=== PATIENT | female | born 1975 | race Caucasian/White ===

== ENCOUNTER → 2016-08-21 | Outpatient (CLI) | payer BC ==
--- NOTE | 2016-08-21 12:55 | CONS ---
DATE OF CONSULTATION: 08/21/2016 CONSULTATION/NEW PATIENT EVALUATION: A 40-year-old lady who has been evaluated in the [facility] for snoring and tiredness and sleepiness during the day. HISTORY OF PRESENT ILLNESS/SLEEP-WAKE EVALUATION: Patient has history of sleepiness and tiredness for a long time, had sleep study done about 8 years ago. At that time sleep study was negative for obstructive sleep apnea-hypopnea syndrome, but she continued to snore and feel sleepy during the day. SLEEP SCHEDULE: Her sleep schedule varies but usually on the weekdays is from around 9 p.m. until 6:15 a.m. On weekends from around 11 p.m. until 7:38 a.m. FALLING ASLEEP: She does have problems usually falling asleep. Has TV set in bedroom. DURING SLEEP: Usually sleeps on the side position, wakes up from sleep up to 4 times with up to 2 episodes of nocturia. Moves a lot during the night. No history of hypnagogic hallucinations, sleep paralysis or cataplexy. Patient feels sometimes dryness in her mouth, believes that she opens her mouth during sleep, sometimes drooling during the night. DURING THE DAY/WAKE STATE: She feels sleepiness during the day, although usually does not take naps. [place] Sleepiness Scale is 10. PAST MEDICAL HISTORY: Positive for anxiety episodes, headaches, sometimes she wakes up with headache in the morning, diarrhea. PAST SURGICAL HISTORY: Cholecystectomy, laparoscopy for the abdominal pain in the past, negative for any significant abnormalities. Bilateral surgery for lazy eyes in childhood. MEDICATIONS: control pills, Questran, Elavil, Prozac. SOCIAL HISTORY: Negative for smoking or using alcohol. REVIEW OF SYSTEMS: Positive for excessive daytime sleepiness, awakenings from sleep, episodes of diarrhea, depression, anxiety, problem with memory, concentration. FAMILY HISTORY: Stroke, arthritis, emphysema, snoring, headaches, diabetes. During physical exam, a 40-year-old lady without distress. BP 157/78, HR 74, RR 16. Height 5, 5-1/2. Weight 137, BMI 22.4. Neck 13-1/4 inches in circumference. Temperature 99.2. OROPHARYNX: ( ) 2 mm, extremely low position of soft palate. Slight restriction of nasal breathing bilaterally, more on the left side. NECK: Supple. No JVD. Thyroid is not palpable. LUNGS: Clear to percussion and to auscultation. Good air exchange. No wheezing or rhonchi. HEART: S1, S2 regular. No murmurs, gallops or rubs. ABDOMEN: Soft and nontender. Bowel sounds are present. No organomegaly appreciated. EXTREMITIES: No clubbing or cyanosis. BOX FABRICATOR: Awake, alert, and oriented x3. Cranial nerves 2 to 7 intact. There is no fasciculation or atrophy noted. No focal deficits observed. IMPRESSION: 1. Snoring, low position of soft palate, awakenings from sleep up to 4 times, sleepiness during the day, possible obstructive sleep apnea-hypopnea syndrome but sleep study 8 years ago was negative. 2. Sleepiness during the day. [place] Sleepiness Scale increased to 10, differential diagnosis includes hypersomnia. 3. Anxiety. 4. Episodes of headaches, sometimes after awakenings in the morning. 5. Status post cholecystectomy. 6. Status post lazy eye surgery. 7. Multiple episodes of diarrhea, started after cholecystectomy. PLAN: 1. Polysomnography for evaluation of patient's breathing during sleep. 2. CPAP/BiPAP titration if sleep study confirms obstructive sleep apnea-hypopnea syndrome. 3. Preferable position during sleep on the side. 4. No driving if patient feels any sleepiness. Patient is aware of civil and criminal liability for unsafe driving. 5. I will see patient for follow-up visit to explain results of the testing and following plan. 6. Multiple sleep latency test, if sleep study will be negative for obstructive sleep apnea-hypopnea syndrome for objective evaluation of patient's symptoms of excessive daytime sleepiness. Thank you very much for referring this patient for consultation. Sincerely, Reji Camara MD, PhD, FAASM. Diplomat of [place] [employer], Sleep Medicine Board by [place] [employer] Facsimile Operator of [facility] [place]
== END | disposition home or self-care (01) ==
CPT/HCPCS: 99211

== ENCOUNTER → 2016-10-30 | Outpatient (CLI) | payer BC ==
--- NOTE | 2016-10-30 23:05 | PN ---
DATE OF SERVICE: 10/30/2016 This patient is a 40-year-old lady who has been followed in the sleep center. She is here to discuss results of her sleep study. Sleep study was done to rule out obstructive sleep apnea-hypopnea syndrome and to check for symptoms of excessive sleepiness. No significant respiratory abnormalities were documented during the sleep study. Apnea-hypopnea index zero. Lowest oxygen level was 93.8%. We discussed results of the sleep study with the patient in detail. Following multiple sleep latency test showed mean sleep latency 12.8 minutes, which is in acceptable range. MEDICATION: Elavil for headaches. PHYSICAL EXAMINATION: Patient is in no distress. VITAL SIGNS: BP 129/82, HR 76, RR 16. Oxygen saturation at room air 98%. Weight 139 pounds. BMI 23.1. Temperature is 98.9. HEENT: PERRLA, EOMI. Evaluation of oropharynx showed tongue protrudes midline; moderately low position of soft palate. NECK: Supple. No JVD. Thyroid is not palpable. LUNGS: Clear to percussion and to auscultation. Good air exchange. No wheezing or rhonchi. HEART: S1, S2 regular. No murmurs, gallops or rubs. ABDOMEN: Soft and nontender. Bowel sounds are present. No organomegaly appreciated. EXTREMITIES: No clubbing or cyanosis. CONVENTION PLANNER: Awake, alert, and oriented x3. Cranial nerves 2 to 7 intact. There is no fasciculation or atrophy noted. No focal deficits observed. IMPRESSION: 1. No significant respiratory abnormalities during sleep. 2. Snoring was documented during the sleep study. 3. Episodes of headaches. 4. No significant sleepiness documented by the results of multiple sleep latency test. 5. Episodes of anxiety. 6. Status post cholecystectomy. 7. Status post lazy eye surgery. 8. Episodes of diarrhea. PLAN: 1. Sleep hygiene with regular time in bed for at least 8 hours; preferable position slightly up on the side. 2. Patient could be evaluated for snoring by ear, nose and throat physician. 3. Watching weight. 4. No driving if feeling any sleepiness. Thank you very much for allowing me to participate in the management of your patient. Sincerely, Reji Camara MD, PhD, FAASM. Diplomat of [employer], Sleep Medicine Board by [employer], [place] [employer]
== END | disposition home or self-care (01) ==
LOC: SLEEP 16:35
PROVIDERS: ATTEND Internal Medicine
DX: R06.83 Snoring (principal); R51 Headache; F41.9 Anxiety disorder, unspecified; R19.7 Diarrhea, unspecified; Z98.890 Other specified postprocedural states

== ENCOUNTER → 2018-08-12 | Outpatient (CLI) | payer BC ==
--- NOTE | 2018-08-22 12:11 | MM ---
Reason for exam: screening (asymptomatic). Last mammogram was performed 2 years and 6 months ago. History: Taking hormonal contraceptives for 23 years 9 months beginning at age 18. MG 3D Screening Mammo W/Cad Bilateral CC and MLO view(s) were taken. Prior study comparison: February 06, 2016, bilateral MG screening mammo w CAD. April 23, 2011, bilateral digital screening mammo w/CAD. The breast tissue is heterogeneously dense. This may lower the sensitivity of mammography. No significant changes when compared with prior studies. ASSESSMENT: Benign, BI-RAD 2 RECOMMENDATION: Routine screening mammogram of both breasts in 1 year.
== END | disposition home or self-care (01) ==
LOC: RADMAMWWP 11:05
PROVIDERS: ATTEND Obstetrics & Gynecology
DX: Z12.31 Encounter for screening mammogram for malignant neoplasm of breast (principal)
CPT/HCPCS: 77063; 77067

== ENCOUNTER → 2020-01-12 | Outpatient (CLI) | payer BC ==
--- NOTE | 2020-01-21 20:13 | EM ---
EVENT MONITOR Patient was monitored between the and the 17 of January. The rhythm strip reviewed revealed sinus mechanism with single PVCs and one ventricle of couplets. There were no episodes of ventricular tachycardia nor atrial fibrillation. ANA / SARA: [id number] /
== END | disposition home or self-care (01) ==
LOC: RADECHMAIN 11:55
PROVIDERS: ATTEND Internal Medicine
DX: R00.2 Palpitations (principal)
CPT/HCPCS: 93270

== ENCOUNTER → 2020-11-13 | Outpatient (CLI) | payer BC ==
--- NOTE | 2020-11-15 10:51 | MM ---
Reason for exam: screening (asymptomatic). Last mammogram was performed 2 years and 3 months ago. History: Taking hormonal contraceptives for 23 years 9 months beginning at age 18. Physical Findings: A clinical breast exam by your physician is recommended on an annual basis and results should be correlated with mammographic findings. MG 3D Screening Mammo W/Cad Bilateral CC and MLO view(s) were taken. Prior study comparison: August 12, 2018, bilateral MG 3d screening mammo w/cad. February 06, 2016, bilateral MG screening mammo w CAD. The breast tissue is extremely dense which could obscure a lesion on mammography. No significant changes when compared with prior studies. ASSESSMENT: Benign, BI-RAD 2 RECOMMENDATION: Routine screening mammogram of both breasts in 1 year.
== END | disposition home or self-care (01) ==
LOC: RADMAMWWP 13:46
PROVIDERS: ATTEND Obstetrics & Gynecology
DX: Z12.31 Encounter for screening mammogram for malignant neoplasm of breast (principal)
CPT/HCPCS: 77063; 77067

== ENCOUNTER → 2021-06-26 | Outpatient (CLI) | payer OTHER ==
--- NOTE | 2021-06-26 10:52 | XR ---
EXAMINATION TYPE: XR lumbar spine 2 or 3V DATE OF EXAM: 06/26/2021 CLINICAL HISTORY: Pain since recent fall injury. TECHNIQUE: Frontal and lateral images of the lumbar spine are obtained. COMPARISON: Prior lumbar spine x-ray January 28, 2011. MRI lumbar spine November 06, 2011 FINDINGS: There are 5 lumbar type vertebral bodies redemonstrated. Stable slight grade 1 retrolisthe sis L5 on S1. Moderate to severe disc space narrowing with vacuum disc phenomenon L5-S1 level is prog ressed from prior studies. Vertebral body heights and disc space heights are stable and satisfactory above the L5 level. No acute fracture is seen. Overlying Cholecystectomy clips are redemonstrated. IMPRESSION: No acute fracture or dislocation is seen in the lumbar spine.
--- NOTE | 2021-06-26 11:07 | CT ---
EXAMINATION TYPE: CT brain cspine wo con DATE OF EXAM: 06/26/2021 COMPARISON: CT brain August 01, 2010. HISTORY: Headache and neck pain after recent trauma injury CT DLP: 1313.2 mGycm. Automated Exposure Control for Dose Reduction was Utilized. TECHNIQUE: CT scan of the head and cervical spine are performed without contrast. FINDINGS: There is no acute intracranial hemorrhage, mass effect, or midline shift identified. The ventricles and sulci are within normal limits in size. Lion-white matter differentiation is maintain ed. The calvarium is intact. The globes are intact and the visualized sinuses are clear. Cervical spine is visualized in its entirety from C1 through upper thoracic levels and demonstrates g rade 1 retrolisthesis C6 on C7 without evidence of acute fracture or dislocation. Prevertebral soft tissue appears within normal limits. The C1-C2 articulation is within normal limits on the coronal i mages. Vertebral body heights are maintained. Mild to moderate disc space narrowing and anterior spur ring C6-C7 level. Posterior disc herniation C5-C6 level effaces anterior thecal sac sagittal image 42 and axial image 62. Axial images show normal appearing thyroid gland. Lung apices show no pneumothor ax. IMPRESSION: 1. There is no acute fracture or dislocation evident in the cervical spine. 2. No acute intracranial hemorrhage, mass effect, or midline shift is seen. No significant change fro m prior.
== END | disposition home or self-care (01) ==
LOC: RADCTMAIN 10:18
PROVIDERS: ATTEND Emergency Medicine
DX: S13.4XXA Sprain of ligaments of cervical spine, initial encounter (principal); S00.83XA Contusion of other part of head, initial encounter; S33.5XXA Sprain of ligaments of lumbar spine, initial encounter; X58.XXXA Exposure to other specified factors, initial encounter
CPT/HCPCS: 70450; 72100; 72125

== ENCOUNTER → 2022-05-30 | Outpatient (CLI) | payer BC ==
--- NOTE | 2022-06-02 08:34 | MM ---
Reason for Exam: Screening (asymptomatic). Last mammogram was performed 1 year(s) and 6 month(s) ago. Patient History: Menarche at age 12. First Full-Term at age 26. Currently using Hormonal Contraceptives, beginning at age 18 for 23 years, 9 months. Risk Values: Almita 5 year model risk: 1.0%. NCI Lifetime model risk: 10.3%. Prior Study Comparison: 02/06/2016 Bilateral Screening Mammogram, [facility]. 08/12/2018 Bilateral Screening Mammogram, [facility]. 11/13/2020 Bilateral Screening Mammogram, [facility]. Tissue Density: The breast tissue is heterogeneously dense. This may lower the sensitivity of mammography. Findings: Analyzed By CAD. There is no suspicious group of microcalcifications or new suspicious mass in either breast. Overall Assessment: Negative, BI-RAD 1 Management: Screening Mammogram of both breasts in 1 year. A clinical breast exam by your physician is recommended on an annual basis and results should be correlated with mammographic findings. Electronically signed and approved by: Aden Chun M.D. Radiologis
== END | disposition home or self-care (01) ==
LOC: RADMAMWWP 16:33
PROVIDERS: ATTEND Obstetrics & Gynecology
DX: Z12.31 Encounter for screening mammogram for malignant neoplasm of breast (principal)
CPT/HCPCS: 77063; 77067

== ENCOUNTER → 2023-02-19 | Outpatient (CLI) | payer BC ==
--- NOTE | 2023-02-19 10:23 | XR ---
EXAMINATION TYPE: XR cervical spine w flex/ext DATE OF EXAM: 02/19/2023 COMPARISON: NONE HISTORY: Pain TECHNIQUE: 9 views are submitted including flexion extension lateral views. FINDINGS: The odontoid is intact. There are no compression deformities. The prevertebral soft tissue structur es are within normal limits. There is a moderate degenerative disc disease C6-C7 with large anterior hypertrophic spurring. There is posterior spondylosis one to 2 mm retrolisthesis of C6 relative to C 7. There is a 1 to 2 mm anterolisthesis of C4 relative to C5 which is slightly increased on flexion v iew and reduces on extension view. Findings suggest ligamentous laxity foraminal encroachment level C 4-5, C5-6 and C6-C7. IMPRESSION: 1. Evidence of moderate degenerative disc disease with posterior spondylosis C6-C7. 2. Loss of the cervical lordosis with anterolisthesis of C3-4 on C5 and retrolisthesis of C6 and C7 a s discussed above. Recommend follow-up MRI.
--- NOTE | 2023-02-19 10:30 | XR ---
EXAM TYPE: LUMBAR SPINE X RAY SERIES COMPARISON: 06/26/2021 HISTORY: Back pain TECHNIQUE: 4 views are submitted. FINDINGS: Alignment is anatomic. The pedicles are intact. The transverse processes are intact. There is no s pondylolysis or spondylolisthesis. Severe degenerative disc disease L5-S1. There is advanced facet arthropathy L4-5 and L5-S1 with bilateral foraminal enlargement. There is multilevel ljjk-ch-kzfinbeh degenerative disc disease with diffuse osteopenia. Surgical clips in the gallbladder fossa IMPRESSION: 1. Diffuse osteopenia with multilevel uqme-ah-[id number] degenerative disc disease. Severe changes L5-S 1 with facet arthropathy suspected foraminal encroachment..
== END | disposition home or self-care (01) ==
LOC: RADXRMAIN 09:20
PROVIDERS: ATTEND Internal Medicine
DX: M47.816 Spondylosis without myelopathy or radiculopathy, lumbar region (principal); M47.812 Spondylosis without myelopathy or radiculopathy, cervical region; M50.323 Other cervical disc degeneration at C6-C7 level; M43.12 Spondylolisthesis, cervical region; M51.36 Other intervertebral disc degeneration, lumbar region; M47.817 Spondylosis without myelopathy or radiculopathy, lumbosacral region
CPT/HCPCS: 72052; 72100

== ENCOUNTER → 2023-04-06 | Outpatient (CLI) | payer BC ==
--- NOTE | 2023-04-06 20:12 | MR ---
EXAMINATION TYPE: MR cspine/lspine wo con DATE OF EXAM: 04/06/2023 7:16 PM CLINICAL INDICATION:Female, 47 years old with history of M47.812 SPONDYLOSIS W/O MYELOPATHY OR RADICU LOPATH; Back and neck pain COMPARISON: 11/06/2011 TECHNIQUE: Multi planar, multi sequence imaging was performed utilizing: T1-weighted, T2-weighted, a nd turbo inversion recovery imaging of the cervical and lumbar spine. MR contrast: IV Contrast: None. FINDINGS: CERVICAL: Alignment: The cervical vertebral bodies have preserved heights. Mild straightening of the cervical s pine. Bones: Scattered Modic endplate changes with osteophytes and disc space narrowing. Multilevel degener ative disc disease is noted and most pronounced at the C5-C7 vertebral levels. Cord: The spinal cord is unremarkable with regards to their signal intensity and morphology. Discs: Intervertebral disc signal is maintained. C2-C3: No significant disc pathology. The spinal canal is patent. No neural foraminal stenosis. C3-C4: No significant disc pathology. The spinal canal is patent. Bilateral facet and uncovertebral joint arthropathy are present with mild bilateral neural foraminal stenosis. C4-C5: No significant disc pathology. The spinal canal is patent. Bilateral facet and uncovertebral joint arthropathy are present with mild bilateral neural foraminal stenosis. C5-C6: A disc osteophyte complex is present with mild spinal canal stenosis and mildly impresses on t he anterior spinal cord. Cord signal is maintained.. No neural foraminal stenosis. C6-C7: No significant disc pathology. The spinal canal is patent. Bilateral facet and uncovertebral joint arthropathy are present with moderate to severe right and mild left neural foraminal stenosis. C7-T1: No significant disc pathology. The spinal canal is patent. No neural foraminal stenosis. Other: None. LUMBAR: Alignment: The lumbar vertebral bodies have preserved heights and alignment. Cord: The conus medullaris and the distal spinal cord appear unremarkable with regards to their signa l intensity and morphology. Bones/Discs: Mild disc degeneration changes with Schmorl's nodes, disc space narrowing and Modic endp late changes findings worse at L5-S1. T12-L1: No evidence of significant spinal canal stenosis or neural foraminal stenosis. L1-L2: No evidence of significant spinal canal stenosis or neural foraminal stenosis. L2-L3: No evidence of significant spinal canal stenosis or neural foraminal stenosis. L3-L4: No evidence of significant spinal canal stenosis or neural foraminal stenosis. L4-L5: Central and right central disc extrusion without significant spinal canal stenosis. Facet join t arthropathy with mild bilateral neural foraminal cysts. L5-S1: The disc is rounded posterior morphology without significant spinal canal stenosis. Facet join t arthropathy with mild neural foraminal stenosis. Other findings: None. IMPRESSION: 1. L4-L5 central and right central disc extrusion without significant spinal canal or neural foramina l stenosis. Findings similar to 2012. 2. Mild disc degeneration with associated osteoarthritic changes of the cervical spine worse at C6-C 7 with moderate to severe right neural foraminal stenosis.
== END | disposition home or self-care (01) ==
LOC: RADMRIMAIN 17:52
PROVIDERS: ATTEND Internal Medicine
DX: M47.812 Spondylosis without myelopathy or radiculopathy, cervical region (principal); M47.816 Spondylosis without myelopathy or radiculopathy, lumbar region; M48.02 Spinal stenosis, cervical region; M50.323 Other cervical disc degeneration at C6-C7 level; M51.26 Other intervertebral disc displacement, lumbar region
CPT/HCPCS: 72141; 72148

== ENCOUNTER → 2023-08-31 | Outpatient (CLI) | payer BC ==
--- NOTE | 2023-09-02 20:30 | MM ---
Reason for Exam: Screening (asymptomatic). Last mammogram was performed 1 year(s) and 3 month(s) ago. Patient History: Menarche at age 12. First Full-Term at age 26. Premenopausal. Currently using Hormonal Contraceptives, beginning at age 18 for 23 years, 9 months. Risk Values: Almita 5 year model risk: 1.0%. NCI Lifetime model risk: 10.2%. Prior Study Comparison: 08/12/2018 Bilateral Screening Mammogram, [facility]. 11/13/2020 Bilateral Screening Mammogram, [facility]. 05/30/2022 Bilateral MG 3D screening mammo w/cad, [facility]. Tissue Density: The breast tissue is heterogeneously dense. This may lower the sensitivity of mammography. Findings: Analyzed By CAD. 2.2 cm nodule left upper-outer quadrant, better demonstrated on 3-D images. Further evaluation is recommended. Otherwise, no significant change. Overall Assessment: Incomplete: need additional imaging evaluation, BI-RAD 0 Management: Diagnostic Breast Ultrasound of the left breast. Upper outer quadrant. [facility] will attempt to contact patient to return for supplemental views and ultrasound if indicated. Electronically signed and approved by: Vladimir Armstrong M.D. Radiologist
== END | disposition home or self-care (01) ==
LOC: RADMAMWWP 14:36
PROVIDERS: ATTEND Obstetrics & Gynecology
DX: Z12.31 Encounter for screening mammogram for malignant neoplasm of breast (principal)
CPT/HCPCS: 77063; 77067

== ENCOUNTER → 2023-09-04 | Outpatient (CLI) | payer BC ==
--- NOTE | 2023-09-04 13:38 | USB ---
Reason for Exam: Additional evaluation requested from abnormal screening. Patient History: Menarche at age 12. First Full-Term at age 26. Premenopausal. Currently using Hormonal Contraceptives, beginning at age 18 for 23 years, 9 months. Risk Values: Almita 5 year model risk: 1.0%. NCI Lifetime model risk: 10.2%. Technique: Method: Targeted. Prior Study Comparison: 11/13/2020 Bilateral Screening Mammogram, [facility]. 05/30/2022 Bilateral MG 3D screening mammo w/cad, [facility]. 08/31/2023 Bilateral MG 3D screening mammo w/cad, [facility]. Findings: The lateral section of the breast of the left breast, the axilla of the left breast and the retroareolar of the left breast were scanned. Targeted ultrasound upper outer quadrant left breast including scanning of the subareolar region and axilla. At the 2:00 position, 4 cm from the nipple, there is a benign 2.4 x 2.2 x 0.8 cm cyst, likely mammographic correlate. Six-month follow-up mammogram could be performed. Scattered dense tissue. No other solid or cystic lesion or axillary lymphadenopathy. Overall Assessment: Probably benign, BI-RAD 3 Management: Diagnostic Mammogram of the left breast in 6 months. A clinical breast exam by your physician is recommended on an annual basis and results should be correlated with mammographic findings. This exam should not preclude additional follow-up of suspicious palpable abnormalities. Results were given to the patient verbally at the time of exam. Electronically signed and approved by: Vladimir Armstrong M.D. Radiologist
== END | disposition home or self-care (01) ==
LOC: RADUSWWP 12:53
PROVIDERS: ATTEND Obstetrics & Gynecology
DX: R92.8 Other abnormal and inconclusive findings on diagnostic imaging of breast (principal)

== ENCOUNTER → 2023-10-09 | Outpatient (CLI) | payer OTHER ==
--- NOTE | 2023-10-09 10:37 | XR ---
EXAMINATION TYPE: XR lumbosacral spine min 4V DATE OF EXAM: 10/09/2023 9:35 AM CLINICAL INDICATION:Female, 47 years old with history of S39.012A STRAIN IN BACK; [facility] COMPARISON: 02/19/2023 TECHNIQUE: XR lumbosacral spine min 4V - Frontal, lateral , bilateral oblique and coned in L5-S1 late ral views of the spine. FINDINGS: No evidence of any acute osseous pathology. No evidence of loss of vertebral body height i s seen. There is normal alignment of the lumbar vertebral bodies. Mild scattered disc space narrowing . Multilevel marginal osteophyte formation throughout the visualized spine. There is facet joint arth ropathy throughout the spine worse at L5-S1 with moderate to severe. Scattered neural foraminal steno sis worse at L5-S1 with mild to moderate. Right upper quadrant cholecystectomy clips. IMPRESSION: 1. No acute fracture. 2. Mild to moderate multilevel disc degeneration.
== END | disposition home or self-care (01) ==
LOC: RADXRMAIN 09:10
PROVIDERS: ATTEND Emergency Medicine
DX: S39.012A Strain of muscle, fascia and tendon of lower back, initial encounter (principal); M51.36 Other intervertebral disc degeneration, lumbar region
CPT/HCPCS: 72110

== ENCOUNTER → 2024-02-23 | Outpatient (CLI) | payer BC ==
--- NOTE | 2024-02-23 13:48 | MM ---
Reason for Exam: Follow-up at short interval from prior study. Last screening mammogram was performed 6 month(s) ago. Patient History: Menarche at age 12. First Full-Term at age 26. Premenopausal. Currently using Hormonal Contraceptives, beginning at age 18 for 23 years, 9 months. Risk Values: Almita 5 year model risk: 1.0%. NCI Lifetime model risk: 10.0%. Prior Study Comparison: 11/13/2020 Bilateral Screening Mammogram, [facility]. 05/30/2022 Bilateral MG 3D screening mammo w/cad, [facility]. 08/31/2023 Bilateral MG 3D screening mammo w/cad, [facility]. Tissue Density: Left: The breasts are heterogeneously dense, which may obscure small masses. Findings: Analyzed By CAD. The pattern is symmetrical. Previous rounded density with partially obscured margins upper outer middle left breast remains present slightly smaller than comparison. This was previously identified cyst. No suspicious groups of microcalcifications, spiculated or lobular masses, architectural distortion or other secondary signs of malignancy are mammographically apparent. Overall Assessment: Benign, BI-RAD 2 Management: Screening Mammogram of both breasts in 6 months. A negative mammogram report should not preclude additional follow up of suspicious palpable abnormalities. Patient should continue monthly self breast exam. A clinical breast exam by your physician is recommended on an annual basis and results should be correlated with mammographic findings. Note on Almita scores and lifetime risk: 1. A Almita score greater than 3% is considered moderate risk. If this is the case, consider specialist referral to assess eligibility for a risk reducing agent. 2. If overall lifetime risk for the development of breast cancer is 20% or higher, the patient may qualify for future screening with alternating mammogram and breast MRI. Electronically signed and approved by: Patric Mendez D.O. Radiologis
== END | disposition home or self-care (01) ==
LOC: RADMAMWWP 13:00
PROVIDERS: ATTEND Internal Medicine
DX: R92.8 Other abnormal and inconclusive findings on diagnostic imaging of breast (principal); R92.332 Mammographic heterogeneous density, left breast
CPT/HCPCS: 77061; 77065

== ENCOUNTER → 2024-03-29 | Outpatient (CLI) | payer BC ==
--- NOTE | 2024-04-01 15:56 | WWHP ---
This is from her 03/29/24 visit. [facility] - HISTORY AND PHYSICAL CHIEF COMPLAINT: The patient is here for her routine gynecologic exam. HPI: This is a 48-year-old G1, P1, with an LMP of 03/08/2024. The patient is here to establish with this office. It has been about 1 year since her last pelvic exam, but she is uncertain as to when her last Pap smear was done. She previously saw Dr. Syed for her gynecologic care. She has a history of polycystic ovarian syndrome throughout most of her life. She states her menstrual periods were irregular since she started having menstrual periods around age 13. She was started on oral contraception at age 18 because of infrequent menstrual periods. She stopped control pills to get and did require infertility treatment to get . After her , she resumed oral contraception and does have regular menstrual periods with oral contraception. She is not interested in future childbearing. She is without gynecologic complaints at this time. PAST MEDICAL HISTORY: ADHD, mood disorder, digestive problems, depression and anxiety improved with ADHD medications, and PCOS. MEDICATIONS: 1. Asotin-Linyah one p.o. daily. 2. Ritalin 10 mg b.i.d. 3. Lamotrigine 100 mg daily. 4. Questran 1 pack daily. ALLERGIES: To Reglan, which caused anxiety. PAST SURGICAL HISTORY: Cholecystectomy, laparoscopy, and 2 eye surgeries. PAST OB HISTORY: One vaginal delivery. 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 SOCIAL HISTORY: She denies tobacco, alcohol, and drug use. She has been since 1996. 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 FAMILY HISTORY: Mother has diabetes and chronic obstructive pulmonary disease. Father is and had lung cancer. There is no family history of cancer of the breast, uterus, ovaries, or colon. REVIEW OF SYSTEMS: She has had weight fluctuation related to stress in her life and had lost approximately 19 pounds because of a stressful situation, but she has gained that weight back. She denies respiratory, cardiac or GI problems. PHYSICAL EXAMINATION: VITAL SIGNS: Blood pressure 134/91, height 5 feet 6 inches, weight 141 pounds, BMI 23. Temperature 98.2, pulse 76, pulse oximeter 100%. GENERAL: This is a well-developed, well-nourished, white female, who is alert and oriented x3, in no acute distress. HEENT: Within normal limits. NECK: Supple without mass or thyromegaly. CHEST AND LUNGS: Clear to auscultation. HEART: Regular rate and rhythm. BREASTS: Without mass or discharge. AXILLARY: Negative for adenopathy. BACK: Negative for CVA tenderness. ABDOMEN: Soft, nontender, without palpable masses. PELVIC: Normal external genitalia without significant atrophy. Cervix and vagina appear normal with no significant atrophy. There is no unusual discharge. There is no cervical motion tenderness. The uterus is mid positioned, nongravid size, and nontender. There are no palpable adnexal masses or tenderness. RECTAL: Negative for mass or tenderness and is occult blood negative. EXTREMITIES: Nontender. IMPRESSION: A 48-year-old female with: 1. Long history of polycystic ovarian syndrome with history of oligomenorrhea, controlled with oral contraception. 2. Normal gynecologic exam. 3. Mildly elevated blood pressure. 4. Probable perimenopause based on her age. PLAN: 1. Pap smear co-test was performed. 2. Self-breast examination was discussed. We have also discussed symptoms of inflammatory breast cancer. 3. The patient states she had a mammogram done around the end of July of 2023. She did require a 6-month short-term mammogram or ultrasound in February and this was benign per the patient. She states she is due for a screening mammogram in August of 2024. The order slip for this was given to the patient. 4. Her elevated blood pressure was discussed. I have recommended that she check her own blood pressure on a regular basis and follow up with her PCP for blood pressure elevations. 5. Continue oral contraception at this time. We have discussed the increased risk for blood clots. She will continue taking her control pills daily. The prescription for this will be sent to [email or web address] on [facility]. 6. Osteoporosis prevention was discussed. 7. Blood tests will include FSH and estradiol. She will have this blood drawn at the end of her inactive pill week. We will use this to determine if she is menopausal. When we determine she is menopausal, we will plan on discontinuing oral contraception at that time. The order slip was given to the patient for this. 8. She will return in 1 year for her annual well-woman examination. MMODL / IJN: [id number] / SEVERIANO
--- NOTE | 2024-04-26 17:50 | P.PN ---
Progress Note - Text Progress Note Date: 04/26/24 OUTPATIENT FOLLOW-UP NOTE TEST(S)/RESULTS: Test results from 03/29/2024 include negative Pap smear and negative high-risk HPV testing. Blood test done on 04/09/2024 include FSH of 40.8 and estradiol of less than 20. METHOD OF NOTIFICATION: The patient was notified by phone on 04/26/2024. PATIENT COMMENTS: The patient confirms that she did the blood tests just prior to starting a new pack of control pills at the end of the inactive pill week. DIAGNOSIS: Negative Pap smear cotest. Perimenopausal female. DISCUSSION: The FSH indicates she is perimenopausal. I am uncertain as to whether the FSH would be significantly higher if there was a longer hormone free period before doing this testing. We have discussed how I usually wait until the FSH is greater than 50 before telling a person she no longer needs oral contraception for control. We have decided to have a trial off of the oral contraception and repeat the FSH and estradiol 2 months after that. I recommended that she use condoms if she is sexually active. The order slip for the FSH and estradiol will be mailed to the patient. She is to call if she has any questions. PLAN: As above.
== END ==
LOC: WWCWWP 14:12
PROVIDERS: ATTEND Obstetrics & Gynecology
DX: Z01.419 Encounter for gynecological examination (general) (routine) without abnormal findings

== ENCOUNTER → 2024-04-09 | Outpatient (CLI) | payer BC ==
[2024-04-09 13:41] LABS: Estradiol <20.0 pg/mL
[2024-04-09 14:22] LABS: Follicle Stimulating Hormone 40.8 mIU/mL
== END | disposition home or self-care (01) ==
LOC: LABWHC1 08:13
PROVIDERS: ATTEND Obstetrics & Gynecology
DX: E28.2 Polycystic ovarian syndrome (principal)
CPT/HCPCS: 36415; 82670; 83001

== ENCOUNTER → 2024-07-28 | Outpatient (CLI) | payer BC ==
--- NOTE | 2024-07-28 16:23 | US ---
EXAMINATION TYPE: US kidneys/renal and bladder DATE OF EXAM: 07/28/2024 COMPARISON: NONE CLINICAL INDICATION: Female, 48 years old with history of N18.2 CKD STAGE 2; TECHNIQUE: Grayscale imaging of the bilateral kidneys and urinary bladder: FINDINGS: EXAM MEASUREMENTS: Right Kidney: 9.4 x 3.7 x 4.4 cm Left Kidney: 10.0 x 4.7 x 4.5 cm Right Kidney: visualized portions wnl, inferior pole limited by overlying bowel gas Left Kidney: visualized portions wnl, inferior pole limited by overlying bowel gas Bladder: wnl Bilateral Jets seen: yes Renal cortical thickness and echogenicity maintained. No hydronephrosis or nephrolithiasis. IMPRESSION: No acute process. [facility], , 07/28/2024 4:20 PM
== END | disposition home or self-care (01) ==
LOC: RADUSWWP 15:19
PROVIDERS: ATTEND Internal Medicine
DX: N18.2 Chronic kidney disease, stage 2 (mild) (principal)
CPT/HCPCS: 76770

== ENCOUNTER → 2024-12-23 | Outpatient (CLI) | payer BC ==
--- NOTE | 2024-12-23 08:01 | MM ---
Reason for Exam: Screening (asymptomatic). Last mammogram was performed 1 year(s) and 4 month(s) ago. Patient History: Menarche at age 12. First Full-Term at age 26. Premenopausal. Hormonal Contraceptives, starting at age 18 for 23 years, 9 months. Risk Values: Almita 5 year model risk: 1.1%. NCI Lifetime model risk: 9.9%. Prior Study Comparison: 05/30/2022 Bilateral MG 3D screening mammo w/cad, [facility]. 08/31/2023 Bilateral MG 3D screening mammo w/cad, [facility]. 02/23/2024 Left MG 3D diag mammo w/cad [facility], [facility]. Tissue Density: The breasts are heterogeneously dense, which may obscure small masses. Findings: Analyzed By CAD. A circumscribed 15 mm mass in the breast by from prior mammograms. A benign cyst is discussed on September 04, 2023 report There is no suspicious group of microcalcifications or new suspicious mass in either breast. Overall Assessment: Benign, BI-RAD 2 Management: Screening Mammogram of both breasts in 1 year. . Patient should continue monthly self-breast exams. A clinical breast exam by your physician is recommended on an annual basis. This exam should not preclude additional follow-up of suspicious palpable abnormalities. Note on Almita scores and lifetime risk: 1. A Almita score greater than 3% is considered moderate risk. If this is the case, consider specialist referral to assess eligibility for a risk reducing agent. 2. If overall lifetime risk for the development of breast cancer is 20% or higher, the patient may qualify for future screening with alternating mammogram and breast MRI. [facility], , 12/23/2024 7:57 AM. Electronically signed and approved by: Dorian Agustin M.D.
== END | disposition home or self-care (01) ==
LOC: RADMAMWWP 07:29
PROVIDERS: ATTEND Obstetrics & Gynecology
DX: Z12.31 Encounter for screening mammogram for malignant neoplasm of breast (principal); R92.333 Mammographic heterogeneous density, bilateral breasts; Z92.0 Personal history of contraception
CPT/HCPCS: 77063; 77067

== ENCOUNTER → 2025-01-24 | Outpatient (CLI) | payer BC ==
[2025-01-24 20:49] LABS: Follicle Stimulating Hormone 4.7 mIU/mL
--- NOTE | 2025-01-25 13:32 | P.PN ---
Progress Note - Text Progress Note Date: 01/25/25 OUTPATIENT FOLLOW-UP NOTE TEST(S)/RESULTS: Blood test results from 01/24/2025 include FSH of 4.7 and estradiol of 583. METHOD OF NOTIFICATION: The patient was notified that her blood tests are consistent with being premenopausal. She was notified by phone on 01/25/2025. PATIENT COMMENTS: Patient states she discontinued oral contraception as planned last fall. She states her menstrual periods have been very unpredictable and ranging from 2 to 3 weeks to 3-month cycles. She would like to go back on oral contraception for cycle control and for control. She continues to not smoke cigarettes and denies any health history of clotting problems. DIAGNOSIS: Irregular menstrual periods in a premenopausal female with history of PCOS. DISCUSSION: She is a good candidate to resume oral contraception for the above reasons. She will be restarted on Dundy-Linyah oral contraception. She states her LMP started about 2 weeks ago but she has had variable and unpredictable flow during the past 2 weeks. She was instructed to restart the oral contraception now, but she was instructed to also use condoms through the first pack of pills. She understands she may not be fully protected during the first pack of pills. She can also have irregular menstrual bleeding for the first couple of packs of pills. She states she still has 2 packs of pills at home. I will send an additional prescription to [facility] on [facility] for 3 additional months. She was instructed to make an appointment for her annual well woman examination within the next 3 to 5 months. PLAN: As above.
== END | disposition home or self-care (01) ==
LOC: LABWHC1 13:23
PROVIDERS: ATTEND Obstetrics & Gynecology
DX: E28.2 Polycystic ovarian syndrome (principal)
CPT/HCPCS: 36415; 82670; 83001

== ENCOUNTER → 2025-01-25 | Outpatient (CLI) | payer BC | LOC: WWCWWP 13:59 | PROVIDERS: ATTEND Obstetrics & Gynecology | DX: Z53.9 Procedure and treatment not carried out, unspecified reason (principal) ==